=== PATIENT | male | born 1970 | race Two or more races ===

== ENCOUNTER 2018-04-19 16:48 | Emergency (ER) | payer SELFPAY ==
[~2018-04-19] VITALS: Ht 180.3 cm; Wt 63.6 kg
[2018-04-19] MEDS ORDERED: MAALOX/HYOSCYAMINE/LIDOCAINE 45 ML BTL ONE (17:18)
[2018-04-19] MEDS ORDERED: FAMOTIDINE 20 MG/2 ML ONE (17:18)
[2018-04-19] MEDS ORDERED: FAMOTIDINE 20 MG/2 ML IVP ONE (17:30)
[2018-04-19] MEDS ORDERED: MAALOX/HYOSCYAMINE/LIDOCAINE 45 ML BTL PO ONE (17:30)
[2018-04-19 17:34] LABS: ALANINE AMINOTRANSFERASE 29 U/L (12-78); ALBUMIN 4.2 g/dL (3.4-5.0); ANION GAP 14 mmol/L (5-15); CHLORIDE 104 mmol/L (98-107)
[2018-04-19 17:35] LABS: BASOPHILS # (AUTO) 0.09 x10^3/uL (0-0.1); BASOPHILS % (AUTO) 1 % (0-1); EOSINOPHILS # (AUTO) 0.04 x10^3/uL (0-0.4); EOSINOPHILS % (AUTO) 1 % (1-7); LYMPHOCYTES # (AUTO) 1.85 x10^3/uL (1-3.4); LYMPHOCYTES % (AUTO) 24 % (22-44); MD NO; MEAN CORPUSCULAR HEMOGLOBIN 34.7 pg (27.5-34.5); MEAN CORPUSCULAR HGB CONC 34.3 g/dL (33.2-36.2); MEAN CORPUSCULAR VOLUME 101.3 fL (81-97); MEAN PLATELET VOLUME 8.3 fL (7.4-10.4); MONOCYTES # (AUTO) 0.58 x10^3/uL (0.2-0.8); MONOCYTES % (AUTO) 7 % (2-9); NEUTROPHILS # (AUTO) 5.27 x10^3/uL (1.8-6.8); NEUTROPHILS % (AUTO) 67 % (42-75); PLATELET COUNT 349 x10^3/uL (130-400); RED BLOOD COUNT 5.04 x10^6/uL (4.38-5.82); RED CELL DISTRIBUTION WIDTH 12.6 % (9.4-14.8)
[2018-04-19 17:36] LABS: ALKALINE PHOSPHATASE 99 U/L (45-117); TOTAL PROTEIN 7.4 g/dL (6.4-8.2)
[2018-04-19 17:39] LABS: TROPONIN I < 0.015 ng/mL (0.000-0.045)
[2018-04-19 19:39] VITALS: BP 145/72
== END 2018-04-19 19:41 | disposition home or self-care (01) ==
LOC: ED 19:35
DX: K29.00 Acute gastritis without bleeding (principal); F17.200 Nicotine dependence, unspecified, uncomplicated
CPT/HCPCS: 36415; 71045; 76700; 80053; 83690; 84484; 85025; 93005; 96374; 99285; S0028